=== PATIENT | male | born 1990 | race Caucasian/White ===

== ENCOUNTER 2017-08-01 10:13 | Emergency (ER) | payer OTHER ==
[~2017-08-01] VITALS: Ht 175.3 cm; Wt 56.2 kg
[~2017-08-01 10:13] MED LIST: BUSPAR15 MG PO; CARAFATE1 GM PO; CELEXA40 MG PO; FLEXERIL10 MG PO; FLONASE16 G1 BOTH NARES; FLUVOXAMINE MA100 MG PO; KLONOPIN1 MG PO; LORTAB 5-325 M1 EACH PO; MIRTAZAPINE15 MG PO; MOTRIN IB200 MG PO; MOTRIN600 MG PO; MUCUS ER600 MG PO; MULTIVITAMIN1 EAC2 PO; NAPROSYN500 MG PO; NICOTINE PATCH1 EAC2 TD; NORCO 5/3251 TABLET PO; PAIN RELIEVER325 M2 PO; PREDNISONE20 MG PO; PREDNISONE50 MG PO; PRILOSEC40 MG PO; REMERON15 M2 PO; RISPERDAL1 MG PO; RISPERDAL2 MG PO; RISPERIDONE0.5 MG PO; ROBITUSSIN AC,T10 ML PO; Remove Nicotine Patch TD; TESSALON PERLE100 MG PO; TOPAMAX25 MG PO; TRAMADOL HCL50 MG PO; TRAZODONE HCL50 MG PO; VALIUM2 MG PO; VYVANSE40 MG PO; ZOLOFT50 MG PO
[2017-08-01 10:18] VITALS: BP 137/95
[2017-08-01] MEDS ORDERED: PERCOCET 5/31 TABLET PO (11:47)
== END 2017-08-01 11:59 | disposition home or self-care (01) ==
LOC: EME 10:13
DX: S22.42XA Multiple fractures of ribs, left side, initial encounter for closed fracture (principal); M54.6 Pain in thoracic spine; Y04.0XXA Assault by unarmed brawl or fight, initial encounter; R06.00 Dyspnea, unspecified; F17.200 Nicotine dependence, unspecified, uncomplicated
CPT/HCPCS: 71111; 99281; 99282

== ENCOUNTER 2017-09-06 14:15 | Inpatient (IN) | payer OTHER ==
[~2017-09-06] VITALS: Ht 175.3 cm; Wt 56.1 kg
[~2017-09-06 14:15] MED LIST changes: +PERCOCET 5/31 TABLET PO
[2017-09-06 15:16] LABS: HEMATOCRIT 42.1 % (38.0-50.0); MCH 30.7 PG (29.0-34.0); MCHC 34.9 G/DL (30.0-36.0); MCV 87.9 FL (86-99); RBC DIS.WIDTH-CV 12.3 % (11.8-14.6); RBC DIS.WIDTH-SD 39.8 % (39-53); RED BLOOD COUNT 4.79 M/uL (4.00-5.50); WHITE BLOOD COUNT 10.6 K/uL (4.1-10.2)
[2017-09-06 15:24] LABS: CHLORIDE 109 mEq/L (99-109); POTASSIUM 4.2 mEq/L (3.7-5.4); SODIUM 141 mEq/L (136-147)
[2017-09-06 15:26] LABS: GLUCOSE 128 mg/dL (70-99)
[2017-09-06 15:27] LABS: ANION GAP 8 MEQ/L (2-14)
[2017-09-06 15:29] LABS: SERUM ETHYL ALCOHOL < 10 mg/dL
[2017-09-06 15:30] LABS: GFR ESTIMATE (CALCULATED) > 59 mL/min/ (58.99-99999)
[2017-09-06 15:31] LABS: UREA NITROGEN (BUN) 9 mg/dL (9-23)
[2017-09-06] MEDS ORDERED: VICODIN (15:46)
[2017-09-06] MEDS ORDERED: ZOLOFT (15:46)
[2017-09-06] MEDS ORDERED: INVEGA (15:47)
[2017-09-06] MEDS ORDERED: CLONAZEPAM ×2 (15:47→22:40)
[2017-09-06 15:49] LABS: PLATELET COUNT 251 K/uL (156-360)
[2017-09-06 16:10] LABS: ADD MEDTOX COMMENT Y; AMPHETAMINE NEGATIVE (500 ng/mL); BARBITURATES NEGATIVE (200 ng/mL); BENZODIAZEPINES NEGATIVE (150 ng/mL); COCAINE NEGATIVE (150 ng/mL); INTERNAL CONTROLS VALID? YES; METHADONE NEGATIVE (200 ng/mL); METHAMPHETAMINE NEGATIVE (500 ng/mL); OPIATES (MORPHINE) PRESUMPTIVE POSITIVE (100 ng/mL); OXYCODONE NEGATIVE (100 ng/mL); PHENCYCLIDINE NEGATIVE (25 ng/mL); PROPOXYPHENE NEGATIVE (300 ng/mL); THC CANNABINOIDS PRESUMPTIVE POSITIVE (50 ng/mL); TRICYCLIC ANTIDEPRESSANTS NEGATIVE (300 ng/mL)
[2017-09-06] MEDS ORDERED: ZOLOFT50 MG PO (22:36)
[2017-09-06] MEDS ORDERED: INVEGA3 MG PO (22:37)
[2017-09-06] MEDS ORDERED: HYDROCODON-ACE1 EAC9 PO (22:39)
[2017-09-07] MEDS ORDERED: KLONOPIN1 MG PO (00:09)
[2017-09-07 02:57] VITALS: BP 128/81
[2017-09-07 08:02] VITALS: BP 105/58
[2017-09-07 15:27] VITALS: BP 118/65
[2017-09-08 07:51] VITALS: BP 108/63
[2017-09-08 15:21] VITALS: BP 114/59
[2017-09-09 07:40] VITALS: BP 100/57
[2017-09-09 15:57] VITALS: BP 133/64
[2017-09-10 09:15] VITALS: BP 113/54
== END 2017-09-10 10:22 | disposition home or self-care (01) | DRG 881 ==
LOC: EME 14:15 → CANRESERV 21:09 → ENRESERV 21:09 → 1WEST 09-07 01:09 → EDOF 09-07 01:09 → ENRESERV 09-07 01:40 → 1WEST 09-07 02:53
PROVIDERS: Emergency Medicine
DX: F32.9 Major depressive disorder, single episode, unspecified (principal); R45.851 Suicidal ideations; F40.10 Social phobia, unspecified; F12.10 Cannabis abuse, uncomplicated; S22.39XA Fracture of one rib, unspecified side, initial encounter for closed fracture; F60.9 Personality disorder, unspecified; Z68.1 Body mass index [BMI] 19.9 or less, adult; R45.850 Homicidal ideations; G40.909 Epilepsy, unspecified, not intractable, without status epilepticus; F17.200 Nicotine dependence, unspecified, uncomplicated; J45.909 Unspecified asthma, uncomplicated; Z59.0 Homelessness; Z81.8 Family history of other mental and behavioral disorders
CPT/HCPCS: 71020; 80048; 84999; 85027; 90839; 97150 GO; 97165 GO; 99281; 99285; G0480